=== PATIENT | female | born 1960 | race Caucasian/White ===

== ENCOUNTER 2022-02-28 15:47 | Emergency (ER) | payer BC, SELFPAY | END 2022-02-28 17:16 | disposition home or self-care (01) | LOC: CSHERS 15:47 | DX: F10.129 Alcohol abuse with intoxication, unspecified (principal) | CPT/HCPCS: 36415; 80307; 99284 ==

== ENCOUNTER 2024-05-26 10:49 | Outpatient (CLI) | payer BC | END 2024-05-26 10:50 | disposition home or self-care (01) | LOC: CSHMAMMO 10:49 | PROVIDERS: ATTEND Family Medicine | DX: M81.0 Age-related osteoporosis without current pathological fracture (principal); M85.851 Other specified disorders of bone density and structure, right thigh; M85.852 Other specified disorders of bone density and structure, left thigh | CPT/HCPCS: 77080 ==